=== PATIENT | male | born 2000 | race Caucasian/White ===

== ENCOUNTER 2025-01-29 14:10 | Emergency (ER) | payer OTHER, SELFPAY ==
[2025-01-29 14:17] VITALS: BP 125/57; PULSE 72; RESP 14; TEMP 36.4; O2SAT 97
[2025-01-29 14:30] VITALS: BP 125/57; PULSE 72; RESP 14; TEMP 36.4; O2SAT 97
--- NOTE | 2025-01-29 15:31 | ED_ITS ---
HPI - Wound/Laceration General Chief Complaint: Wound/Laceration Stated Complaint: right arm laceration Time Seen by Provider: 01/29/25 15:06 Source: patient Mode of arrival: ambulatory Limitations: no limitations History of Present Illness HPI narrative: 24-year-old male no past medical history presents to the ED with -- 2 cm laceration over the right anterior arm. got lacerated by a metal object at work. -- 0.5 cm superficial laceration over the right upper arm. No other injuries noted. Onset (ago): hour(s) ( 1 hour ago) Extremity Location: Right: arm Body four view annotation: 2 1. 1 cm superficial laceration of right upper arm 2. 1 cm full-thickness laceration of right anterior arm Place: work Patient tetanus UTD: No Context: accidental Associated symptoms: none Related Data Allergies Allergy/AdvReac Type Severity Reaction Status Date / Time No Known Allergies Allergy Verified 01/29/25 15:43 Review of Systems 2 Review of Systems: All systems reviewed & are unremarkable except as noted in HPI and below Exam 2 Narrative: vitals are stable Const: General: healthy appearing and no acute distress Nutritional Appearance: well nourished Orientation/consciousness: patient oriented x3 Limitations: no limitations HENMT: Head: normal to inspection Ears: external ears normal F mannie/Nose/Sinus: Normal external nose present Face and sinus: normal facial exam Mouth: Yes Normal oral and palatal mucosa present Eyes: Conjunctivae: conjunctivae normal Pupils: Equal, round and reactive pupils present EOM: EOMs intact bilaterally Direct Ophthalmoscopy: no photophobia Neck: Neck: normal visual inspection, no lymphadenopathy and no meningeal signs Chest: Chest palpation & inspection: normal inspection of the chest Resp: Effort & Inspection: normal respiratory effort Auscultation: clear to auscultation bilaterally Cardio: Rate: regular rate Rhythm: regular rhythm GI: GI Palp: Yes Soft to palpation Auscultation: normal bowel sounds O ther: no tenderness/ rigidity /rebound Back/Spine/Pelvis: Back: no CVA tenderness Skin: General skin exam: normal color Other: 1 cm superficial laceration of the right anterior arm 2 cm full-thickness skin laceration over the right upper arm Neuro: General: patient oriented x3, moves all extremities, no meningeal signs and no focal motor deficits Speech: normal speech Extrem: General: normal to inspection Other: lacerations over right anterior Psych: Mental Status: mental status grossly normal Affect: normal affect Attitude: cooperative Course Course Emergency Course: accidental laceration of the right anterior status post suturing Vital Signs Vital signs: Vital Signs Temperature 36.4 C L 01/29/25 14:17 Pulse Rate 72 01/29/25 14:17 Respiratory Rate 14 01/29/25 14:17 Blood Pressure 125/57 L 01/29/25 14:17 Pulse Oximetry 97 01/29/25 14:17 Oxygen Delivery Room Air 01/29/25 14:17 Temperature 36.4 C L 01/29/25 14:30 Pulse Rate 72 01/29/25 14:30 Respiratory Rate 14 01/29/25 14:30 Blood Pressure 125/57 L 01/29/25 14:30 Pulse Oximetry 97 01/29/25 14:30 Oxygen Delivery Room Air 01/29/25 14:30 Procedures Laceration Laceration 1: Date: 01/29/25 Time: 15:41 Site: upper extremity Side (If applicable): right Size (cm): 2 Description: irregular Depth: simple, single layer Local Anesthetic: lidocaine 1% Amount of anesthesia used (mL): 4 ====== Skin Level ====== Skin layer closed with: nylon Size (cm): 4-0 Number of sutures: 4 Technique: running ====== Subcutaneous Layer ====== ====== Muscle Layer ====== ====== Tendon Layer ====== MDM - Wound/Laceration MDM Narrative Medical decision making narrative: accidental laceration to the right anterior arm measuring 2 cm superficial laceration measuring 1 cm. Differential Diagnosis Differential diagnosis: Likely abrasion Discharge Plan Discharge Clinical Impression: Laceration of arm Patient Disposition: Home Condition: Stable Instructions: Antibiotic Form, Laceration (ED) Patient Language: Kazakh Follow-up/Referrals: PHYSICIAN,DATA ANALYTICS SPECIALIST [Primary Care Provider] - Time of Disposition: 15:43
[2025-01-29] MEDS: TETANUS,DIPHTHERIA,AC PERTUSSIS ADULT 0.5 ML (ADACEL) IM (15:49)
[2025-01-29] MEDS: LIDOCAINE 1% LOCAL INJ 10 ML VIAL 4 ML INFILTRATE (15:50)
[2025-01-29 16:46] VITALS: BP 118/63; PULSE 68; RESP 16; O2SAT 100
== END 2025-01-29 16:55 | disposition home or self-care (01) ==
PROVIDERS: Emergency Provider Internal Medicine Critical Care Medicine; Referring Provider Internal Medicine
DX: S41.111A Laceration without foreign body of right upper arm, initial encounter (principal); W26.8XXA Contact with other sharp object(s), not elsewhere classified, initial encounter; Y99.0 Civilian activity done for income or pay; Z23 Encounter for immunization
CPT/HCPCS: 12001; 90471; 90715; 99282; J2003